=== PATIENT | female | born 1955 | race Caucasian/White ===

== ENCOUNTER 2016-06-09 15:33 | Emergency (ER) | payer MEDICAID ==
[~2016-06-09] VITALS: Ht 170.2 cm; Wt 125.0 kg
[~2016-06-09 15:33] MED LIST: ALBU6.7H INH; GLUCTAB PO; METO50TA PO; PRED20 PO; SPIR50TA21 PO; ZITH250T PO
[2016-06-09 15:35] VITALS: BP 142/75; PULSE 78; RESP 18; TEMP 98.3; O2SAT 98
--- NOTE | 2016-06-09 16:19 | PD ---
HPI Chief Complaint: Fall Time Seen by Provider: 15:51 Travel History International Travel<30 days: No Contact w/Intl Traveler<30days: No Traveled to known affect area: No History of Present Illness HPI This patient complains of right ankle injury. Early this morning she stumbled while stepping over a curb and twisted her right ankle. She went to her primary physician's office and had an x-ray she says showed a fracture at the ankle and the referred her to her orthopedist Dr. Castro. She says that she went there and was told the x-ray wasn't good enough to go get another one. She went to a urgent care center that refused her because of insurance. She went to a second urgent care center and was told that they couldn't help her. Now, 6 hours later, she is here at the emergency room with right ankle pain from a fall. Symptoms severity is moderate. Worse with weightbearing. Duration one day. PFSH Past Medical History Arthritis: Yes Cardiovascular Problems: Yes Cerebrovascular Accident: Yes Diabetes: No Diminished Hearing: No Hypertension: Yes Reproductive: Yes (POLYCYSTIC OVARY SYNDROME) Menopausal: Yes Past Surgical History Appendectomy: Yes Gynecologic Surgery: Yes (POLYCYSTIC OVARY SYNDROME) Neurologic Surgery: Yes (CERVICAL FUSION) Social History Alcohol Use: No Tobacco Use: Yes (1/2 PPD) Substance Use: No Allergies-Medications (Allergen,Severity, Reaction): Coded Allergies: No Known Allergies (Verified , 01/24/12) Reported Meds & Prescriptions Reported Meds & Active Scripts Active Proventil Hfa (Albuterol Sulfate) 6.7 Gm Aero 2 Puff INH Q6HPRN * SHAKE WELL BEFORE USE * Zithromax Z-Jordan (Azithromycin) 250 Mg Tab 250 Mg PO DIRECTED 5 Days 500 MG (2 TABLETS) PO ON DAY 1, THEN 250 MG (1 TABLET) PO ON DAYS 2 TO 5. Deltasone (Prednisone) 20 Mg Tab 20 Mg PO BID Reported Metoprolol Tartrate 50 Mg Tab 50 Mg PO BID Spironolactone 50 Mg Tab 50 Mg PO BID Metformin Hcl (Metformin HCl) 500 Mg Tab 500 Mg PO TIDAC Review of Systems General / Constitutional: No: Fever Eyes: No: Visual changes HENT: No: Headaches Cardiovascular: No: Chest Pain or Discomfort Respiratory: No: Shortness of Breath Gastrointestinal: No: Abdominal Pain Genitourinary: No: Dysuria Musculoskeletal: Positive: Arthralgias, Limited ROM, Pain Skin: No Rash Neurologic: No: Weakness Psychiatric: No: Depression Endocrine: No: Polydipsia Hematologic/Lymphatic: No: Easy Bruising Physical Exam Narrative Psych: Normal mood and affect. Normal insight and judgment. SKIN: Focused skin assessment reveals no rash or ulcers. Skin is warm and dry. Palpation shows no induration or nodules. NEUROLOGICAL: Awake and alert. Pupils are equal round and reactive. Motor and sensory grossly within normal limits. Five out of 5 muscle strength in all muscle groups. Normal speech. Right ankle: There is tenderness of the lateral malleolus. There is some bruising around the region is tenderness as well. No open wound. Data Data Last Documented VS Vital Signs Date Time Temp Pulse Resp B/P Pulse Ox O2 Delivery O2 Flow Rate FiO2 06/09/16 15:35 98.3 78 18 142/75 98 Orders Ankle, Complete ([id number]) (06/09/16 ) [facility] Medical Decision Making Medical Screen Exam Complete: Yes Emergency Medical Condition: Yes Medical Record Reviewed: Yes Differential Diagnosis Tibia fracture, ankle dislocation, contusion Narrative Course I have reviewed the patient's electronic medical record. I reviewed her right ankle x-rays which show a nondisplaced fracture at the right distal tibia on the lateral malleolus. I placed her in a splint and gave her crutches She will ice and elevate She also mentions as a side note she did hit her head when she fell. She is neurologically intact I gave and discussed head injury precautions with her She takes no blood thinners There is no emergent indication for CT in the emergency room She will follow-up with her orthopedist Diagnosis Primary Impression: Closed right ankle fracture Qualified Code: S82.891A - Closed right ankle fracture, initial encounter Additional Impression: Head injury due to trauma Qualified Code: S09.90XA - Head injury due to trauma, initial encounter Additional Instructions: Use head injury precautions Ice and elevate right ankle with no weightbearing on it Follow-up with orthopedist Med/Other Pt SpecificInfo: Other Disposition: 01 DISCHARGE HOME Condition: Stable Chip Gar MD Jun 09, 2016 16:19
--- NOTE | 2016-06-09 16:21 | RADRPT ---
EXAM DATE/TIME: 06/09/2016 16:11 [place] COMPARISON: No previous studies available for comparison. INDICATIONS : Right ankle pain after fall. MEDICAL HISTORY : None. SURGICAL HISTORY : None. ENCOUNTER: Initial ACUITY: 2 days PAIN SCORE: 10/10 LOCATION: Right lateral ankle. FINDINGS: AP, lateral and oblique views of the right ankle were obtained and demonstrate a nondisplaced transve rse fracture through the distal fibula. There is overlying soft tissue swelling. The distal tibia is intact. There is diffuse soft tissue swelling. CONCLUSION: Nondisplaced fracture through the distal fibula. Sanjiv Davis MD on June 09, 2016 at 16:18 Board Certified Radiologist. This report was verified electronically.
--- NOTE | 2016-06-09 17:18 | HHI.FF ---
Face to Face Verification Diagnosis: (1) Closed right ankle fracture (2) Head injury due to trauma Physical Therapy Order: Evaluate and Treat Home Health Aide Order: To Assist In: Bathing and personal care, instructional coach and meal prep I have seen patient Juana Schmidt on 06/09/16. My clinical findings support the need for the requested home health care services because: Ltd mobility - disease progression Limited ability to care for self High risk of falls I certify that my clinical findings support that this patient is homebound because: Impaired cognitive ability/safety Unsteady gait/balance Unable to use public transportation Indra Mario MD Jun 09, 2016 17:17
[2016-06-09] MEDS ORDERED: WALKER/ADULT/FO1 MIS ×2 (17:28→17:30)
[2016-06-09] MEDS ORDERED: GABA600T PO (19:08)
[2016-06-09] MEDS ORDERED: TRAM50TA PO (19:09)
[2016-06-09] MEDS ORDERED: SPIR50TA PO (19:11)
[2016-06-09] MEDS ORDERED: SYMB160A INH (19:11)
[2016-06-09] MEDS ORDERED: METO50TA PO (19:12)
== END 2016-06-09 17:30 | disposition home or self-care (01) ==
LOC: NEPD 15:33
DX: S82.61XA Displaced fracture of lateral malleolus of right fibula, initial encounter for closed fracture (principal); X50.0XXA Overexertion from strenuous movement or load, initial encounter; Y93.89 Activity, other specified; Y92.9 Unspecified place or not applicable; I10 Essential (primary) hypertension; F17.210 Nicotine dependence, cigarettes, uncomplicated
CPT/HCPCS: 29515; 73610

== ENCOUNTER 2017-09-12 12:55 | Observation (INO) ==
[2017-09-12] MEDS ORDERED: MethylPREDNISolone Sod Succinate Inj 125 MG/2 ML Vial IV.PUSH ONE (13:50)
--- NOTE | 2017-09-12 13:57 | ED ---
HPI General Chief complaint: Respiratory Symptoms Stated complaint: SOB/abdominal pain Time Seen by Provider: 09/12/17 13:32 Source: patient Mode of arrival: ambulatory Limitations: no limitations History of Present Illness HPI narrative: Patient is a 62-year-old female with history of COPD, hypertension, fibromyalgia, polycystic ovarian syndrome, presents the emergency room with complaints of syncope. Patient reports that yesterday, she was not feeling well. Patient reports that she began to feel short of breath and dizzy , she did lose her balance and ended up having a syncopal episode. Patient reports that she was not sure how long she was on the ground, when she was able to come to, she dragged herself to a chair to get herself to a standing position. Patient reports that she couldn't come to the ER last night as she knew she had to help her mother this morning, she came directly to the ER. Patient reports that for the past day and a half, she has been having chest pain , patient reports that she has been feeling a pressure to her chest. Patient also complains of an upper abdominal pain. Reports that she is also been coughing and wheezing, she has been bringing up thick white sputum. Patient does have history of COPD, she was a past smoker, she currently does not smoke. Related Data Home Medications Medication Instructions Recorded Confirmed baclofen 20 mg PO DIRECTED 09/12/17 09/12/17 gabapentin 600 mg PO BID 09/12/17 09/12/17 metoprolol tartrate 50 mg PO BID 09/12/17 09/12/17 Allergies Allergy/AdvReac Type Severity Reaction Status Date / Time No Known Allergies Allergy Verified 09/12/17 13:17 Review of Systems Except as stated in HPI: all other systems reviewed are negative [facility] Medical History Medical History COPD (chronic obstructive pulmonary disease) (Acute) Fibromyalgia (Acute) HTN (hypertension) (Acute) PCOS (polycystic ovarian syndrome) (Acute) PTSD (post-traumatic stress disorder) (Acute) Social History Social History Substance History: No History of Abuse Smoking Status: Former smoker How Often Do You Have a Drink Containing Alcohol: 2 to 4 times a month Recent Travel in [facility] within the Last 8 Weeks: No Recent Out of Country Travel within the Last 8 Weeks: No Immunization History Tetanus Immunization: <5 Years Hx Influenza Vaccine This Season: No Exam Narrative Exam Narrative: GENERAL: Moderate distress SKIN: Focused skin assessment warm/dry. HEAD: Atraumatic. Normocephalic. EYES: Pupils equal and round. No scleral icterus. No injection or drainage. ENT: No nasal bleeding or discharge. Mucous membranes pink and moist. NECK: Trachea midline. No JVD. CARDIOVASCULAR: Regular rate and rhythm. No murmur appreciated. RESPIRATORY: No accessory muscle use. Scattered wheezing. Breath sounds equal bilaterally. GASTROINTESTINAL: Abdomen soft, non-tender, nondistended. Hepatic and splenic margins not palpable. MUSCULOSKELETAL: No obvious deformities. No clubbing. No cyanosis. No edema. NEUROLOGICAL: Awake and alert. No obvious cranial nerve deficits. Motor grossly within normal limits. Normal speech. PSYCHIATRIC: Appropriate mood and affect; insight and judgment normal. Course Initial Documented Vital Signs Temperature 97.0 F L 09/12/17 13:00 Pulse Rate 90 09/12/17 13:00 Respiratory Rate 22 09/12/17 13:00 Blood Pressure 85/64 L 09/12/17 13:00 Pulse Oximetry 97 09/12/17 13:00 Last Documented Vital Signs Temperature 97.0 F L 09/12/17 13:00 Pulse Rate 82 09/12/17 15:52 Respiratory Rate 20 09/12/17 15:52 Blood Pressure 157/69 H 09/12/17 15:52 Pulse Oximetry 97 09/12/17 15:52 Sign Out Sign Out Data: Patient Sign Out occurred on 09/12/17 at 15:25. Patient's care was discussed, and care was transferred from Chelly El to Em Miranda MD. Sign Out Comment: patient pending lab work and admission to hospital Last updated by Chelly El at 09/12/17 15:01 Post-Handoff Eval: I assumed the care of the patient at time of checkout from Dr. El. CTs are unremarkable without acute abnormality. Lab work shows a slight elevation in lactic acid but otherwise unremarkable without leukocytosis. She continues to require oxygen. She has been given azithromycin and Rocephin to cover her for her COPD exacerbation and she has been admitted to Dr. Mckay for further management. Medical Decision Making MDM Narrative Medical decision making narrative: During the course of the patients emergency department visit, the patients history, examination, and differential diagnosis were reviewed with the patient. The patient was placed on a apparel trimmings sales representative with oximetry and frequent blood pressure monitoring. The patient had an IV access obtained and blood work sent for analysis. The patient was initially provided IVF as well as IV steroids and neb treatments. Patient was tachycardic with a heart rate of 102 and a pulse ox of 92% on room air, she is currently hypotensive with BP 85/64 - septic workup initiated Patient was hypoxic with a pulse ox of 92% on room air - she was placed on oxygen The patients laboratory studies were reviewed and remarkable for [-]. Radiology studies were reviewed and remarkable for [-] Differential Diagnosis Differential Diagnosis: COPD exacerbation, pneumonia, ACS, arrhythmia, pancreatitis, cholecystitis, gastritis, gastroenteritis Medical Records Medical records reviewed: Yes I reviewed the patient's medical records. Lab Data Lab results reviewed: Yes I reviewed the patient's lab results. Lab results narrative: Labs show slight elevation in lactic acid creatinine but otherwise unremarkable. Result diagrams: 09/12/17 13:40 09/12/17 13:40 Lab Results 09/12/17 09/12/17 09/12/17 Range/Units 13:40 13:40 13:55 CBC w Diff Auto diff final WBC 5.7 (4.0-11.0) th/mm3 RBC 4.88 (4.00-5.30) mil/mm3 Hgb 14.8 (11.6-15.3) gm/dL Hct 44.1 (35.0-46.0) % MCV 90.3 (80.0-100.0) fL MCH 30.3 (27.0-34.0) pg MCHC 33.6 (32.0-36.0) % RDW 14.2 (11.6-17.2) % Plt Count 224 (150-450) th/mm3 MPV 9.8 (7.0-11.0) fL Neut % (Auto) 58.7 (16.0-70.0) % Lymph % (Auto) 27.7 (9.0-44.0) % Dixon % (Auto) 11.5 H (0.0-8.0) % Eos % (Auto) 1.3 (0.0-4.0) % Baso % (Auto) 0.8 (0.0-2.0) % Neut # (Auto) 3.3 (1.8-7.7) th/mm3 Lymph # (Auto) 1.6 (1.0-4.8) th/mm3 Dixon # (Auto) 0.7 (0.0-0.9) th/mm3 Eos # (Auto) 0.1 (0.0-0.4) th/mm3 Baso # (Auto) 0.0 (0.0-0.2) th/mm3 WBC Differential . Differential Comment . Puncture Site Patient Temperature O2 Saturation (90-100) % ABG pH (7.380-7.420) ABG pCO2 (38-42) mmHg ABG pO2 (61-120) mmHg ABG HCO3 (22-26) mmol/L ABG O2 Content (12.0-20.0) Vol % ABG Base Excess (-2-2) mmol/L ABG Methemoglobin (0-2) % Eleazar Test Hemoglobin (12.0-16.0) G/DL Carboxyhemoglobin (0-4) % O2 Delivery Device Liter Flow L/M Inspired O2 % Critical Value Sodium 139 (136-145) meq/L Potassium 3.3 L (3.5-5.1) meq/L Chloride 105 (98-107) meq/L Carbon Dioxide 24.1 (21.0-32.0) meq/L Anion Gap 10 (5-15) meq/L BUN 21 H (7-18) mg/dL Creatinine 1.50 H (0.50-1.00) mg/dL Estimated GFR 35 L (>89) mL/min Random Glucose 130 H (74-106) mg/dL Lactic Acid 2.3 H (0.4-2.0) mmol/L Calcium 8.6 (8.5-10.1) mg/dL Magnesium 2.0 (1.5-2.5) mg/dL Total Bilirubin 0.3 (0.2-1.0) mg/dL AST 29 (15-37) U/L ALT 17 (10-53) U/L Alkaline Phosphatase 113 (45-117) U/L Total Creatine Kinase 675 H (26-192) U/L CK-MB (CK-2) 1.1 (0.5-3.6) ng/mL CK-MB (CK-2) % 0.2 (0.0-4.0) % Troponin I Less than 0.02 L (0.02-0.05) ng/mL Total Protein 7.8 (6.4-8.2) g/dL Albumin 3.5 (3.4-5.0) g/dL Lipase 328 (73-393) U/L Urine Color (Yellw/Straw) Urine Clarity (Clear) Urine pH (5.0-8.5) Ur Specific Fifield (1.002-1.035) Urine Protein (Neg-Trace) mg/dL Urine Glucose (UA) (Negative) mg/dL Urine Ketones (Negative) mg/dL Urine Occult Blood (Negative) Urine Nitrate (Negative) Urine Bilirubin (Negative) Urine Urobilinogen (Less than 2) mg/dL Ur Leukocyte Esterase (Negative) Urine RBC (0-3) /hpf Urine WBC (0-5) /hpf Ur Squamous Epith Cells (0-5) /hpf Urine Bacteria (None) /hpf Micro UA Comment Urine Culture Comments 09/12/17 09/12/17 Range/Units 14:06 15:45 CBC w Diff WBC (4.0-11.0) th/mm3 RBC (4.00-5.30) mil/mm3 Hgb (11.6-15.3) gm/dL Hct (35.0-46.0) % MCV (80.0-100.0) fL MCH (27.0-34.0) pg MCHC (32.0-36.0) % RDW (11.6-17.2) % Plt Count (150-450) th/mm3 MPV (7.0-11.0) fL Neut % (Auto) (16.0-70.0) % Lymph % (Auto) (9.0-44.0) % Dixon % (Auto) (0.0-8.0) % Eos % (Auto) (0.0-4.0) % Baso % (Auto) (0.0-2.0) % Neut # (Auto) (1.8-7.7) th/mm3 Lymph # (Auto) (1.0-4.8) th/mm3 Dixon # (Auto) (0.0-0.9) th/mm3 Eos # (Auto) (0.0-0.4) th/mm3 Baso # (Auto) (0.0-0.2) th/mm3 WBC Differential Differential Comment Puncture Site Right radial Patient Temperature 98.6 O2 Saturation 95 (90-100) % ABG pH 7.43 H (7.380-7.420) ABG pCO2 37 L (38-42) mmHg ABG pO2 86 (61-120) mmHg ABG HCO3 24 (22-26) mmol/L ABG O2 Content 18.6 (12.0-20.0) Vol % ABG Base Excess 0.0 (-2-2) mmol/L ABG Methemoglobin 1.1 (0-2) % Eleazar Test Present Hemoglobin 14.0 (12.0-16.0) G/DL Carboxyhemoglobin 2.2 (0-4) % O2 Delivery Device Nasal cannula Liter Flow 2.00 L/M Inspired O2 28 % Critical Value No Sodium (136-145) meq/L Potassium (3.5-5.1) meq/L Chloride (98-107) meq/L Carbon Dioxide (21.0-32.0) meq/L Anion Gap (5-15) meq/L BUN (7-18) mg/dL Creatinine (0.50-1.00) mg/dL Estimated GFR (>89) mL/min Random Glucose (74-106) mg/dL Lactic Acid (0.4-2.0) mmol/L Calcium (8.5-10.1) mg/dL Magnesium (1.5-2.5) mg/dL Total Bilirubin (0.2-1.0) mg/dL AST (15-37) U/L ALT (10-53) U/L Alkaline Phosphatase (45-117) U/L Total Creatine Kinase (26-192) U/L CK-MB (CK-2) (0.5-3.6) ng/mL CK-MB (CK-2) % (0.0-4.0) % Troponin I (0.02-0.05) ng/mL Total Protein (6.4-8.2) g/dL Albumin (3.4-5.0) g/dL Lipase (73-393) U/L Urine Color Yellow (Yellw/Straw) Urine Clarity Clear (Clear) Urine pH 5.5 (5.0-8.5) Ur Specific Fifield Less/equal 1.005 (1.002-1.035) Urine Protein Negative (Neg-Trace) mg/dL Urine Glucose (UA) Negative (Negative) mg/dL Urine Ketones Negative (Negative) mg/dL Urine Occult Blood Moderate H (Negative) Urine Nitrate Negative (Negative) Urine Bilirubin Negative (Negative) Urine Urobilinogen 0.2 (Less than 2) mg/dL Ur Leukocyte Esterase Negative (Negative) Urine RBC 4-15 H (0-3) /hpf Urine WBC 6-8 H (0-5) /hpf Ur Squamous Epith Cells Greater than 10 H (0-5) /hpf Urine Bacteria Few H (None) /hpf Micro UA Comment Culture not ind Urine Culture Comments Culture not ind Imaging Data Attestation: I personally reviewed and interpreted this imaging study as follows : My impression: No acute cardiopulmonary process. CTs per the radiologist. Radiologist's impression: Chest X-Ray 09/12/17 13:49 CONCLUSION: Chronic interstitial changes. No acute abnormality. Head CT 09/12/17 13:49 CONCLUSION: 1. Negative CT Head non contrast. Abdomen/Pelvis CT 09/12/17 13:51 CONCLUSION: 1. Bilateral renal scarring. 2. Atherosclerosis. 3. Calcified granuloma right lung base. Chest CTA 09/12/17 14:58 CONCLUSION: 1. No evidence for pulmonary embolism or pneumonia. 2. Coronary artery calcification. 3. Adrenal adenoma. ECG Data EKG Prior to Arrival: No Attestation: I personally reviewed and interpreted this ECG as follows: Interpretation: EKG at 1353: NSR at 76bpm, qt/qtc: 377/407, no acute st or t wave changes Discharge Plan Physicians Team ED Provider: Em Miranda Primary Care Provider: Britni Deleon Rxs /Orders / Referrals /Forms Prescriptions: No Action gabapentin 600 mg Tablet 600 mg PO BID RF: 0 baclofen 20 mg Tablet 20 mg PO DIRECTED RF: 0 metoprolol tartrate 50 mg Tablet 50 mg PO BID RF: 0 Discharge Interventions Interventions: Vital Signs Last Done: 09/12/17 15:52 Status ED Status: Pending Admission
[2017-09-12 14:15] LABS: ABG PCO2 37 mmHg (38-42); ABG PO2 86 mmHg (61-120)
[2017-09-12 14:20] LABS: Baso % (Auto) 0.8 % (0.0-2.0); Eos # (Auto) 0.1 th/mm3 (0.0-0.4); Eos % (Auto) 1.3 % (0.0-4.0); Hematocrit 44.1 % (35.0-46.0); Hemoglobin 14.8 gm/dL (11.6-15.3); Lymph # (Auto) 1.6 th/mm3 (1.0-4.8); Lymph % (Auto) 27.7 % (9.0-44.0); Mean Corpuscular HGB Conc 33.6 % (32.0-36.0); Mean Corpuscular Hemoglobin 30.3 pg (27.0-34.0); Mean Corpuscular Volume 90.3 fL (80.0-100.0); Mean Platelet Volume 9.8 fL (7.0-11.0); Mono # (Auto) 0.7 th/mm3 (0.0-0.9); Mono % (Auto) 11.5 % (0.0-8.0); Neut # (Auto) 3.3 th/mm3 (1.8-7.7); Neut % (Auto) 58.7 % (16.0-70.0); Platelet Count 224 th/mm3 (150-450); Red Blood Count 4.88 mil/mm3 (4.00-5.30); Red Cell Distribution Width 14.2 % (11.6-17.2); White Blood Count 5.7 th/mm3 (4.0-11.0)
[2017-09-12] MEDS ORDERED: Sod Chloride 0.9% Inj 1,000 ML IV.SIG ONE ×2 (14:25)
--- NOTE | 2017-09-12 14:27 | XR ---
EXAM DATE: 09/12/2017 2:24 PM EDT AGE/SEX: 62 years / Female INDICATIONS: Short of breath CLINICAL DATA: This is the patient's initial encounter. Patient reports that signs and symptoms have been present for 1 day and indicates a pain score of 3/10. MEDICAL/SURGICAL HISTORY: Chronic obstructive pulmonary disease. None. COMPARISON: [facility], CHEST PA & LAT, 01/24/2012. . FINDINGS: The heart is normal in size. There are chronic interstitial changes within the pulmonary parenchyma. The lungs are otherwise clear. Visualized bony structures are grossly intact. CONCLUSION: Chronic interstitial changes. No acute abnormality. Electronically signed by: Roverto Garner MD 09/12/2017 2:25 PM EDT
[2017-09-12 14:29] LABS: Chloride 105 meq/L (98-107); Potassium 3.3 meq/L (3.5-5.1); Sodium 139 meq/L (136-145)
[2017-09-12 14:32] LABS: Albumin 3.5 g/dL (3.4-5.0); Anion Gap 10 meq/L (5-15); Calcium 8.6 mg/dL (8.5-10.1); Carbon Dioxide 24.1 meq/L (21.0-32.0); Lipase 328 U/L (73-393)
[2017-09-12 14:33] LABS: Blood Urea Nitrogen 21 mg/dL (7-18); Glucose,Random 130 mg/dL (74-106)
[2017-09-12 14:35] LABS: Alanine Aminotransferase 17 U/L (10-53); Aspartate Aminotransferase 29 U/L (15-37); Glomerular Filtration Rate 35 mL/min (>89)
[2017-09-12 14:37] LABS: Total Protein 7.8 g/dL (6.4-8.2)
[2017-09-12 14:38] LABS: Alkaline Phosphatase 113 U/L (45-117); Creatine Kinase 675 U/L (26-192)
[2017-09-12 14:51] LABS: CKMB Percent 0.2 % (0.0-4.0); Creatine Kinase MB 1.1 ng/mL (0.5-3.6)
--- NOTE | 2017-09-12 15:18 | CT ---
EXAM DATE: 09/12/2017 3:11 PM EDT AGE/SEX: 62 years / Female INDICATIONS: Syncope. CLINICAL DATA: This is the patient's initial encounter. Patient reports that signs and symptoms have been present for 2 days and indicates a pain score of 0/10. MEDICAL/SURGICAL HISTORY: Chronic obstructive pulmonary disease. Hypertension. None. RADIATION DOSE: 57.89 CTDI (mGy) COMPARISON: No prior exams available for comparison. TECHNIQUE: CT of the head without contrast. Using automated exposure control and adjustment of the mA and/or kV according to patient size, radiation dose was kept as low as reasonably achievable to ob tain optimal diagnostic quality images. DICOM format image data is available electronically for revi ew and comparison. FINDINGS: Cerebrum: The ventricles are normal for age. No evidence of midline shift, mass lesion, hemorrhage or acute infarction. No extraaxial fluid collections are seen. Posterior Fossa: The cerebellum and brainstem are intact. The 4th ventricle is midline. The cerebe llopontine angle is unremarkable. Extracranial: The visualized portion of the orbits is intact. Skull: The calvaria is intact. No evidence of skull fracture. CONCLUSION: 1. Negative CT Head non contrast. Electronically signed by: Roverto Garner MD 09/12/2017 3:16 PM EDT
--- NOTE | 2017-09-12 15:47 | CT ---
EXAM DATE: 09/12/2017 3:38 PM EDT AGE/SEX: 62 years / Female INDICATIONS: Short of breath. CLINICAL DATA: This is the patient's initial encounter. Patient reports that signs and symptoms have been present for 2 days and indicates a pain score of 0/10. MEDICAL/SURGICAL HISTORY: Chronic obstructive pulmonary disease. Hypertension. Fusion, cervical. Appendectomy. RADIATION DOSE: 24.20 CTDI (mGy) COMPARISON: [facility], CHEST 1V SINGLE AP, 09/12/2017. . TECHNIQUE: Volumetric scanning was performed using a multi-row detector CT scanner during bolus infu roberto of 50 ml Visipaque 320 (iodixanol) nonionic water-soluble contrast as a cumulative dose for mul tiple exams. The data was post processed with a variety of visualization algorithms including full vo lume maximum intensity projection and sliding thin slab reformation. Using automated exposure contro l and adjustment of the mA and/or kV according to patient size, radiation dose was kept as low as tamanna sonably achievable to obtain optimal diagnostic quality images. DICOM format image data is available electronically for review and comparison. FINDINGS: There is a calcified granuloma in the right lower lobe. Subcentimeter calcified right hilar and infra hilar nodes are seen. No pathologically enlarged lymph nodes are present. There is coronary artery ca lcification. There is a nodule of the left adrenal gland which measures 2 cm and -10 Hounsfield units characteristic of an adenoma. There is no evidence of pulmonary embolism. Osseous structures are int act. CONCLUSION: 1. No evidence for pulmonary embolism or pneumonia. 2. Coronary artery calcification. 3. Adrenal adenoma. Electronically signed by: Onofre Malone MD 09/12/2017 3:46 PM EDT
--- NOTE | 2017-09-12 15:49 | CT ---
EXAM DATE: 09/12/2017 3:38 PM EDT AGE/SEX: 62 years / Female INDICATIONS: Upper abdominal pain. CLINICAL DATA: This is the patient's initial encounter. Patient reports that signs and symptoms have been present for 2 days and indicates a pain score of 5/10. MEDICAL/SURGICAL HISTORY: Chronic obstructive pulmonary disease. Hypertension. Appendectomy. Fusion, cervical. ORAL CONTRAST: No oral contrast ingested. RADIATION DOSE: 21.92 CTDI (mGy) COMPARISON: No prior exams available for comparison. TECHNIQUE: Multiple contiguous axial images were obtained through the abdomen and pelvis following b olus infusion of 50 ml Visipaque 320 (iodixanol) nonionic water-soluble contrast as a cumulative do se for multiple exams. No oral contrast ingested. Using automated exposure control and adjustment of the mA and/or kV according to patient size, radiation dose was kept as low as reasonably achievable to obtain optimal diagnostic quality images. DICOM format image data is available electronically for review and comparison. FINDINGS: There are no pleural or pericardial effusions. Calcified granuloma at the right lung base. Coronary a rtery calcification is seen. 2 cm left adrenal adenoma. There is mild cortical thinning and focal sca rring of the right kidney mid to lower poles as well as prominent scarring at the upper and middle po les of the left kidney. Atherosclerotic calcification of the aorta and iliac vessels. Spleen, pancrea s, urinary bladder, uterus and ovaries are unremarkable. No evidence of bowel obstruction. No free fl uid or free air. No adenopathy or aneurysm. Degenerative changes of the spine. CONCLUSION: 1. Bilateral renal scarring. 2. Atherosclerosis. 3. Calcified granuloma right lung base. Electronically signed by: Onofre Malone MD 09/12/2017 3:48 PM EDT
[2017-09-12 16:02] LABS: Bilirubin,Urine Negative (Negative); Clarity,Urine Clear (Clear); Color,Urine Yellow (Yellw/Straw); Glucose,Urine (UA) Negative (Negative); Leukocyte Esterase,Urine Negative (Negative); Nitrite,Urine Negative (Negative); PH,Urine 5.5 (5.0-8.5); Specific Gravity,Urine Less/Equal 1.005 (1.002-1.035); Urobilinogen,Urine 0.2 mg/dL (Less than 2)
[2017-09-12] MEDS ORDERED: Azithromycin Inj 500 MG in Sodium Chlor 0.9% Inj 250 ML IV.SIG ONE (16:07)
[2017-09-12 16:15] LABS: Bacteria,Urine Few /hpf; Squamous Epithelial Cell,Urine Greater than 10 /hpf (0-5)
[2017-09-12 16:46] LABS: Activated Partial Thrombo Time 27.9 sec (24.3-30.1); Prothrombin Time 10.5 sec (9.8-11.6)
[2017-09-12] MEDS ORDERED: Temazepam 15 MG Capsule PO PRN (16:47)
[2017-09-12] MEDS ORDERED: Bisacodyl 10 MG Supp RECTAL PRN (16:47)
[2017-09-12] MEDS ORDERED: Acetaminophen 325 MG Tablet PO PRN (16:47)
--- NOTE | 2017-09-12 16:56 | P.HPIM ---
History of Present Illness Primary Care Physician: Britni Deleon DO Chief Complaint: Shortness of breath History of Present Illness: This patient is a 62-year-old female with a known history of COPD but she had Symbicort for the last 3 years. She reports increased work of breathing and shortness of breath over the last 3 days. The symptoms are worse over the last day. She had wheezing and produced more clear phlegm. She was dizzy. Her blood pressure was a bit low so she came to the hospital today. On exam she is 90% on room air and had wheezes scattered. The patient was given steroids and bronchodilator treatment and appeared to improve. On my review of her x-ray and EKG there did not appear to be any acute abnormalities. Patient is recommended for further observation and treatment of COPD exacerbation. - Diagnosis (1) HTN (hypertension) (2) Acute exacerbation of chronic obstructive pulmonary disease (COPD) Inpatient Certification: I certify that the inpatient services were ordered in accordance with Medicare regulations governing the order. This includes certification that hospital inpatient services are reasonable and necessary and in the case of services not specified as inpatient-only under 42 CFR 419.22(n), that they are appropriately provided as inpatient services in accordance to with the 2-midnight benchmark under 43 CFR 412.3(e) Review of Systems Respiratory: Reports change in phlegm color, Reports chest congestion, Reports cough, Reports shortness of breath, Reports shortness of breath with activity PMFSH - History History Provided By: Patient - Medical History Medical History: Medical History (Last Reviewed 09/12/17 @ 16:53 by Criss Mckay MD) COPD (chronic obstructive pulmonary disease) Fibromyalgia HTN (hypertension) PCOS (polycystic ovarian syndrome) PTSD (post-traumatic stress disorder) - Surgical History Surgical History: Surgical History (Last Updated 09/12/17 @ 16:53 by Criss Mckay MD) History of D&C Hx of appendectomy Hx of fusion of cervical spine - Family History Family History: Family History (Last Updated 09/12/17 @ 16:54 by Criss Mckay MD) Other Family history of emphysema - Tobacco History Smoking Status: Former smoker (Quit 1 year ago) - Alcohol History How Often Do You Have a Drink Containing Alcohol: 2 to 4 times a month - Substance Use History Substance History: No History of Abuse - Travel History Recent Travel in the [place] Within the Last 8 Weeks: No Recent Travel Out of the Country Within the Last 8 Weeks: No - Immunization History Tetanus Immunization: <5 Years Hx Influenza Vaccine This Season: No Medications and Allergies Active Medications: Active Medications Acetaminophen (Tylenol) 650 mg PO Q4H PRN PRN Reason: Temp > 100.4 Albuterol (Duoneb Neb (Ramy)) 1 ampul NEB Q6HR WHILE AWAKE NEB RAMY Baclofen (Lioresal) 20 mg PO DIRECTED [facility] Bisacodyl (Dulcolax Supp) 10 mg RECTAL DAILY PRN PRN Reason: SEVERE CONSITIPATION Budesonide/Formoterol Fumarate (Symbicort 160/4.5 Mcg Inh) 2 puff INH BID RAMY Azithromycin 500 mg/ Sodium (Chloride) 250 mls @ 250 mls/hr IV.SIG ONCE ONE Stop: 09/12/17 17:06 Last Admin: 09/12/17 16:20 Dose: 250 mls/hr Levofloxacin/Dextrose (Levaquin 750 Mg Premix Inj) 150 mls @ 100 mls/hr IV.SIG Q24H RAMY Lactulose (Lactulose Liq) 30 ml PO DAILY PRN PRN Reason: SEVERE CONSITIPATION Methylprednisolone Sodium Succinate (Solumedrol Inj) 60 mg IV.PUSH Q6H RAMY Metoclopramide HCl (Reglan Inj) 5 mg IV.PUSH Q6HR PRN; Protocol PRN Reason: NAUSEA OR VOMITING Metoprolol Tartrate (Lopressor) 50 mg PO BID RAMY Non-Formulary Medication (Gabapentin [Gabapentin]) 600 mg PO BID RAMY Sodium Chloride (Ns Flush) 2 ml IV.FLUSH BID RAMY Sodium Chloride (Ns Flush) 2 ml IV.FLUSH PRN PRN PRN Reason: FLUSH AFTER USING IV ACCESS Temazepam (Restoril) 15 mg PO HS PRN PRN Reason: INSOMNIA Allergies Allergy/AdvReac Type Severity Reaction Status Date / Time No Known Allergies Allergy Verified 09/12/17 13:17 Home Medications Medication Instructions Recorded Confirmed Type baclofen 20 mg PO DIRECTED 09/12/17 09/12/17 History gabapentin 600 mg PO BID 09/12/17 09/12/17 History metoprolol tartrate 50 mg PO BID 09/12/17 09/12/17 History Exam Vital signs: Vital Signs 09/12/17 13:00 09/12/17 14:16 09/12/17 14:24 Temperature 97.0 F L Pulse Rate 90 79 72 Respiratory Rate 22 22 20 Blood Pressure 85/64 L Pulse Oximetry 97 09/12/17 14:26 09/12/17 14:31 09/12/17 14:34 Temperature Pulse Rate 74 74 Respiratory Rate 18 20 Blood Pressure 129/56 L Pulse Oximetry 97 97 09/12/17 15:52 Temperature Pulse Rate 82 Respiratory Rate 20 Blood Pressure 157/69 H Pulse Oximetry 97 Intake & Output 09/11/17 09/12/17 09/12/17 18:59 06:59 18:59 Weight 125 kg Narrative: GENERAL: Well-nourished, well-developed patient. SKIN: Warm and dry. HEAD: Normocephalic. EYES: No scleral icterus. No injection or drainage. NECK: Supple, trachea midline. No JVD or lymphadenopathy. CARDIOVASCULAR: Regular rate and rhythm without murmurs, gallops, or rubs. RESPIRATORY: Bilateral wheezes worse on the left side GASTROINTESTINAL: Abdomen soft, non-tender, nondistended. MUSCULOSKELETAL: No cyanosis, or edema. BACK: Nontender without obvious deformity. No CVA tenderness. NEUROLOGICAL: Awake and alert. Cranial nerves II through XII intact. Motor and sensory grossly within normal limits. Five out of 5 muscle strength in all muscle groups. Normal speech. Results - Labs CBC & Chem 7: 09/12/17 13:40 09/12/17 13:40 Labs: Short CBC 09/12/17 Range/Units 13:40 WBC 5.7 (4.0-11.0) th/mm3 Hgb 14.8 (11.6-15.3) gm/dL Hct 44.1 (35.0-46.0) % Plt Count 224 (150-450) th/mm3 BMP 09/12/17 13:40 Sodium 139 Potassium 3.3 L Chloride 105 Carbon Dioxide 24.1 BUN 21 H Creatinine 1.50 H Calcium 8.6 Cardiac Enzymes 09/12/17 Range/Units 13:40 Total Creatine Kinase 675 H (26-192) U/L CK-MB (CK-2) 1.1 (0.5-3.6) ng/mL Troponin I Less than 0.02 L (0.02-0.05) ng/mL Liver Function 09/12/17 Range/Units 13:40 Total Bilirubin 0.3 (0.2-1.0) mg/dL AST 29 (15-37) U/L ALT 17 (10-53) U/L Alkaline Phosphatase 113 (45-117) U/L Albumin 3.5 (3.4-5.0) g/dL Urine 09/12/17 Range/Units 15:45 Urine Color Yellow (Yellw/Straw) Urine Clarity Clear (Clear) Urine pH 5.5 (5.0-8.5) Ur Specific [place] Less/equal 1.005 (1.002-1.035) Urine Protein Negative (Neg-Trace) mg/dL Urine Glucose (UA) Negative (Negative) mg/dL - Imaging Impressions Chest X-Ray 09/12/17 13:49 CONCLUSION: Chronic interstitial changes. No acute abnormality. Head CT 09/12/17 13:49 CONCLUSION: 1. Negative CT Head non contrast. Abdomen/Pelvis CT 09/12/17 13:51 CONCLUSION: 1. Bilateral renal scarring. 2. Atherosclerosis. 3. Calcified granuloma right lung base. Chest CTA 09/12/17 14:58 CONCLUSION: 1. No evidence for pulmonary embolism or pneumonia. 2. Coronary artery calcification. 3. Adrenal adenoma. Caprini VTE Risk Assessment Caprini VTE Risk Assessment: Moderate/High Risk (score >= 2) Caprini Risk Assessment Model: Point Value = 1 Point Value = 2 Point Value = 3 Point Value = 5 Age 41-60 Minor surgery BMI > 25 kg/m2 Swollen legs Varicose veins or History of unexplained or recurrent spontaneous Oral contraceptives or hormone replacement Sepsis (< 1 month) Serious lung disease, including pneumonia (< 1 month) Abnormal pulmonary function Acute myocardial infarction Congestive heart failure (< 1 month) History of inflammatory bowel disease Medical patient at bed rest Age 61-74 Arthroscopic surgery Major open surgery (> 45 min) Laparoscopic surgery (> 45 min) Malignancy Confined to bed (> 72 hours) Immobilizing plaster cast Central venous access Age >= 75 History of VTE Family history of VTE Factor V Leiden Prothrombin [id number] Lupus anticoagulant Anticardiolipin antibodies Elevated serum homocysteine Heparin-induced thrombocytopenia Other congenital or acquired thrombophilia Stroke (< 1 month) Elective arthroplasty Hip, pelvis, or leg fracture Acute spinal cord injury (< 1 month) Prophylaxis Regimen: Total Risk Factor Score Risk Level Prophylaxis Regimen 0-1 Low Early ambulation 2 Moderate Order ONE of the following: *Sequential Compression Device (SCD) *Heparin 5000 units SQ BID 3-4 Higher Order ONE of the following medications: *Heparin 5000 units SQ TID *Enoxaparin/Lovenox 40 mg SQ daily (WT < 150 kg, CrCl > 30 mL/min) *Enoxaparin/Lovenox 30 mg SQ daily (WT < 150 kg, CrCl > 10-29 mL/min) *Enoxaparin/Lovenox 30 mg SQ BID (WT < 150 kg, CrCl > 30 mL/min) AND/OR *Sequential Compression Device (SCD) 5 or more Highest Order ONE of the following medications: *Heparin 5000 units SQ TID (Preferred with Epidurals) *Enoxaparin/Lovenox 40 mg SQ daily (WT < 150 kg, CrCl > 30 mL/min) *Enoxaparin/Lovenox 30 mg SQ daily (WT < 150 kg, CrCl > 10-29 mL/min) *Enoxaparin/Lovenox 30 mg SQ BID (WT < 150 kg, CrCl > 30 mL/min) AND *Sequential Compression Device (SCD) Assessment and Plan - Assessment (1) HTN (hypertension) Code(s): I10 - Essential (primary) hypertension Status: Acute Plan: Continue with metoprolol Controlled (2) Acute exacerbation of chronic obstructive pulmonary disease (COPD) Code(s): J44.1 - Chronic obstructive pulmonary disease with (acute) exacerbation Status: Acute Plan: Continue bronchodilation by Nebulizer, IV steroids, IV Levaquin O2 as needed support tobacco cessation - Plan Code Status: full code Discussed Condition With: er md, IT [employer]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
[2017-09-12] MEDS ORDERED: Budesonide-Formoterol 160/4.5 MCG 6 GM Inhaler INH SCH (21:00)
[2017-09-12] MEDS: MethylPREDNISolone Sod Succinate Inj 125 MG/2 ML Vial IV.PUSH SCH (21:07)
[2017-09-12] MEDS: Metoprolol Tartrate 50 MG Tablet PO SCH (21:08)
[2017-09-12] MEDS: Gabapentin 300 MG Capsule PO SCH (21:09)
[2017-09-13] MEDS: MethylPREDNISolone Sod Succinate Inj 125 MG/2 ML Vial IV.PUSH SCH ×2 (01:49→08:25)
[2017-09-13 07:33] VITALS: PULSE 87; RESP 19; O2SAT 97
[2017-09-13] MEDS: Metoprolol Tartrate 50 MG Tablet PO SCH (08:26)
[2017-09-13] MEDS: Gabapentin 300 MG Capsule PO SCH (08:27)
--- NOTE | 2017-09-13 08:47 | ECG ---
Date Performed: 09/12/2017 Time Performed: 13:53:21 PTAGE: 62 years EKG: Sinus rhythm SEPTAL MYOCARDIAL INFARCTION ABNORMAL ECG INTERPRETATION BASED ON A DEFAULT AGE OF 40 YEARS NO PREVIOUS TRACING DOCTOR: Rohit Zapata Interpretating Date/Time 09/13/2017 08:45:21
[2017-09-13 08:52] VITALS: BP 180/81; TEMP 98.8
--- NOTE | 2017-09-13 10:51 | P.PNIM ---
Subjective Interval history: Patient seen and evaluated in follow-up for acute exacerbation of COPD. Overall improved overnight. Education provided the bedside regarding nebulizers which will be prescribed at discharge. Physical Exam Vital signs: Vital Signs 09/12/17 13:00 09/12/17 14:16 09/12/17 14:24 Temperature 97.0 F L Pulse Rate 90 79 72 Respiratory Rate 22 22 20 Blood Pressure 85/64 L Pulse Oximetry 97 09/12/17 14:26 09/12/17 14:31 09/12/17 14:34 Temperature Pulse Rate 74 74 Respiratory Rate 18 20 Blood Pressure 129/56 L Pulse Oximetry 97 97 09/12/17 15:00 09/12/17 15:52 09/12/17 19:15 Temperature 97.1 F L Pulse Rate 82 90 Respiratory Rate 20 22 Blood Pressure 157/69 H 189/86 H Pulse Oximetry 96 97 95 09/12/17 19:35 09/12/17 20:00 09/13/17 00:03 Temperature 97.1 F L 97.1 F L Pulse Rate 95 H 90 74 Respiratory Rate 22 22 22 Blood Pressure 189/86 H 159/79 H Pulse Oximetry 96 94 L 91 L 09/13/17 04:00 09/13/17 07:31 09/13/17 08:00 Temperature 97.4 F L 98.8 F Pulse Rate 86 87 87 Respiratory Rate 20 19 19 Blood Pressure 190/98 H 180/81 H Pulse Oximetry 95 97 97 Intake & Output 09/12/17 09/13/17 09/13/17 18:59 06:59 18:59 Intake Total 1350 / 1350 390 / 390 Output Total 600 / 600 Balance 1350 / 1350 -210 / -210 Weight 125 kg Intake: IV 1350 / 1350 150 / 150 Azithromycin Inj 500 MG In NS 250 / 250 Inj 250 ML @ 250 mls/hr IV.SIG ONCE ONE Rx#:[id number] Levaquin 750 mg Premix Inj 150 150 / 150 ML @ 100 mls/hr IV.SIG Q24H DREW Rx#:[id number] NS Inj 1,000 ML @ Wide Open IV. 1000 / 1000 SIG BOLUS ONE Rx#:[id number] Rocephin Inj 1,000 MG In NS Inj 100 / 100 100 ML @ 200 mls/hr IV.SIG ONCE ONE Rx#:[id number] Oral 240 / 240 Output: Urine 600 / 600 Other: # Voids 1 Narrative: GENERAL: Well-nourished, well-developed patient. SKIN: Warm and dry. HEAD: Normocephalic. EYES: No scleral icterus. No injection or drainage. NECK: Supple, trachea midline. No JVD or lymphadenopathy. CARDIOVASCULAR: Regular rate and rhythm without murmurs, gallops, or rubs. RESPIRATORY: Breath sounds equal bilaterally. No accessory muscle use. GASTROINTESTINAL: Abdomen soft, non-tender, nondistended. MUSCULOSKELETAL: No cyanosis, or edema. BACK: Nontender without obvious deformity. No CVA tenderness. NEUROLOGICAL: Awake and alert. Cranial nerves II through XII intact. Motor and sensory grossly within normal limits. Five out of 5 muscle strength in all muscle groups. Normal speech. Results - Labs CBC & Chem 7: 09/12/17 13:40 09/12/17 13:40 Laboratory Results - last 24 hr 09/12/17 09/12/17 09/12/17 13:40 13:40 13:40 CBC w Diff Auto diff final WBC 5.7 RBC 4.88 Hgb 14.8 Hct 44.1 MCV 90.3 MCH 30.3 MCHC 33.6 RDW 14.2 Plt Count 224 MPV 9.8 Neut % (Auto) 58.7 Lymph % (Auto) 27.7 [place] % (Auto) 11.5 H Eos % (Auto) 1.3 Baso % (Auto) 0.8 Neut # (Auto) 3.3 Lymph # (Auto) 1.6 [place] # (Auto) 0.7 Eos # (Auto) 0.1 Baso # (Auto) 0.0 WBC Differential . Differential Comment . PT 10.5 INR 1.0 APTT 27.9 Puncture Site Patient Temperature O2 Saturation ABG pH ABG pCO2 ABG pO2 ABG HCO3 ABG O2 Content ABG Base Excess ABG Methemoglobin Eleazar Test Hemoglobin Carboxyhemoglobin O2 Delivery Device Liter Flow Inspired O2 Critical Value Sodium 139 Potassium 3.3 L Chloride 105 Carbon Dioxide 24.1 Anion Gap 10 BUN 21 H Creatinine 1.50 H Estimated GFR 35 L Random Glucose 130 H Lactic Acid Calcium 8.6 Magnesium 2.0 Total Bilirubin 0.3 AST 29 ALT 17 Alkaline Phosphatase 113 Total Creatine Kinase 675 H CK-MB (CK-2) 1.1 CK-MB (CK-2) % 0.2 Troponin I Less than 0.02 L Total Protein 7.8 Albumin 3.5 Lipase 328 Urine Color Urine Clarity Urine pH Ur Specific [place] Urine Protein Urine Glucose (UA) Urine Ketones Urine Occult Blood Urine Nitrate Urine Bilirubin Urine Urobilinogen Ur Leukocyte Esterase Urine RBC Urine WBC Ur Squamous Epith Cells Urine Bacteria Micro UA Comment Urine Culture Comments 09/12/17 09/12/17 09/12/17 13:55 14:06 15:45 CBC w Diff WBC RBC Hgb Hct MCV MCH MCHC RDW Plt Count MPV Neut % (Auto) Lymph % (Auto) [place] % (Auto) Eos % (Auto) Baso % (Auto) Neut # (Auto) Lymph # (Auto) [place] # (Auto) Eos # (Auto) Baso # (Auto) WBC Differential Differential Comment PT INR APTT Puncture Site Right radial Patient Temperature 98.6 O2 Saturation 95 ABG pH 7.43 H ABG pCO2 37 L ABG pO2 86 ABG HCO3 24 ABG O2 Content 18.6 ABG Base Excess 0.0 ABG Methemoglobin 1.1 Eleazar Test Present Hemoglobin 14.0 Carboxyhemoglobin 2.2 O2 Delivery Device Nasal cannula Liter Flow 2.00 Inspired O2 28 Critical Value No Sodium Potassium Chloride Carbon Dioxide Anion Gap BUN Creatinine Estimated GFR Random Glucose Lactic Acid 2.3 H Calcium Magnesium Total Bilirubin AST ALT Alkaline Phosphatase Total Creatine Kinase CK-MB (CK-2) CK-MB (CK-2) % Troponin I Total Protein Albumin Lipase Urine Color Yellow Urine Clarity Clear Urine pH 5.5 Ur Specific [place] Less/equal 1.005 Urine Protein Negative Urine Glucose (UA) Negative Urine Ketones Negative Urine Occult Blood Moderate H Urine Nitrate Negative Urine Bilirubin Negative Urine Urobilinogen 0.2 Ur Leukocyte Esterase Negative Urine RBC 4-15 H Urine WBC 6-8 H Ur Squamous Epith Cells Greater than 10 H Urine Bacteria Few H Micro UA Comment Culture not ind Urine Culture Comments Culture not ind 09/12/17 17:28 CBC w Diff WBC RBC Hgb Hct MCV MCH MCHC RDW Plt Count MPV Neut % (Auto) Lymph % (Auto) [place] % (Auto) Eos % (Auto) Baso % (Auto) Neut # (Auto) Lymph # (Auto) [place] # (Auto) Eos # (Auto) Baso # (Auto) WBC Differential Differential Comment PT INR APTT Puncture Site Patient Temperature O2 Saturation ABG pH ABG pCO2 ABG pO2 ABG HCO3 ABG O2 Content ABG Base Excess ABG Methemoglobin Eleazar Test Hemoglobin Carboxyhemoglobin O2 Delivery Device Liter Flow Inspired O2 Critical Value Sodium Potassium Chloride Carbon Dioxide Anion Gap BUN Creatinine Estimated GFR Random Glucose Lactic Acid 2.5 H Calcium Magnesium Total Bilirubin AST ALT Alkaline Phosphatase Total Creatine Kinase CK-MB (CK-2) CK-MB (CK-2) % Troponin I Total Protein Albumin Lipase Urine Color Urine Clarity Urine pH Ur Specific [place] Urine Protein Urine Glucose (UA) Urine Ketones Urine Occult Blood Urine Nitrate Urine Bilirubin Urine Urobilinogen Ur Leukocyte Esterase Urine RBC Urine WBC Ur Squamous Epith Cells Urine Bacteria Micro UA Comment Urine Culture Comments - Imaging Impressions Chest X-Ray 09/12/17 13:49 CONCLUSION: Chronic interstitial changes. No acute abnormality. Head CT 09/12/17 13:49 CONCLUSION: 1. Negative CT Head non contrast. Abdomen/Pelvis CT 09/12/17 13:51 CONCLUSION: 1. Bilateral renal scarring. 2. Atherosclerosis. 3. Calcified granuloma right lung base. Chest CTA 09/12/17 14:58 CONCLUSION: 1. No evidence for pulmonary embolism or pneumonia. 2. Coronary artery calcification. 3. Adrenal adenoma. Assessment and Plan - Assessment (1) HTN (hypertension) Code(s): I10 - Essential (primary) hypertension Status: Acute Plan: Continue with metoprolol Controlled (2) Acute exacerbation of chronic obstructive pulmonary disease (COPD) Code(s): J44.1 - Chronic obstructive pulmonary disease with (acute) exacerbation Status: Acute Plan: Continue bronchodilation by Nebulizer, p.o. steroids, p.o. Levaquin O2 as needed support tobacco cessation - Plan Discharge Planning: Discharge home Activity unrestricted Diet heart healthy
[2017-09-13] MEDS ORDERED: levoFLOXacin 750 MG Tablet PO SCH (18:00)
== END 2017-09-13 14:27 | disposition home or self-care (01) ==
LOC: PH3 12:55 → PHED 12:55 → INTOOBSV 16:33 → PHEDA 16:33 → PH3 17:29
PROVIDERS: ADMIT Hospitalist; ATTEND Hospitalist
DX: R06.02 Shortness of breath; Z87.891 Personal history of nicotine dependence; I25.10 Atherosclerotic heart disease of native coronary artery without angina pectoris; I12.9 Hypertensive chronic kidney disease with stage 1 through stage 4 chronic kidney disease, or unspecified chronic kidney disease; M79.7 Fibromyalgia; R00.0 Tachycardia, unspecified; N18.9 Chronic kidney disease, unspecified; R55 Syncope and collapse; E28.2 Polycystic ovarian syndrome; J44.1 Chronic obstructive pulmonary disease with (acute) exacerbation; I95.9 Hypotension, unspecified; I70.0 Atherosclerosis of aorta; J84.10 Pulmonary fibrosis, unspecified; D35.00 Benign neoplasm of unspecified adrenal gland; Z79.899 Other long term (current) drug therapy; F43.10 Post-traumatic stress disorder, unspecified